=== PATIENT | female | born 1990 | race Caucasian/White ===

== ENCOUNTER → 2021-06-26 | Outpatient (CLI) | payer OTHER ==
[2021-07-01 11:10] LABS: HPV 16 Negative (Negative); HPV 18 Negative (Negative); HPV OTHER HR TYPES Negative (Negative)
== END | disposition home or self-care (01) ==
LOC: LAB SHORT 13:34 → LAB 13:34
PROVIDERS: Nurse Practitioner Family
DX: Z11.51 Encounter for screening for human papillomavirus (HPV) (principal)
CPT/HCPCS: 87624; G0123